=== PATIENT | female | born 1980 | race Caucasian/White ===

== ENCOUNTER 2016-06-04 12:25 | Emergency (ER) | payer OTHER ==
[2016-06-04] MEDS ORDERED: ONDANSETRON 4 MG ODT TAB ONE (13:25)
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
== END 2016-06-04 14:25 | disposition home or self-care (01) ==
LOC: ED 12:25
DX: S06.0X0A Concussion without loss of consciousness, initial encounter (principal); S40.211A Abrasion of right shoulder, initial encounter; S00.81XA Abrasion of other part of head, initial encounter; S50.811A Abrasion of right forearm, initial encounter; V19.9XXA Pedal cyclist (driver) (passenger) injured in unspecified traffic accident, initial encounter; Y93.55 Activity, bike riding; Y92.9 Unspecified place or not applicable
CPT/HCPCS: 70450; 99283 ×2; A9270